=== PATIENT | female | born 1980 | race African-American/Black ===

== ENCOUNTER 2018-01-08 11:42 | Inpatient (IN) | payer OTHER ==
[2018-01-08 12:06] VITALS: BMI 22.1
[2018-01-08] MEDS ORDERED: ALBUTEROL SO4 0.083% IH SOL 2.5 MG/3 ML VIAL.NEB. NEB PRN (12:56)
--- NOTE | 2018-01-08 13:03 | HP ---
CIWA Score Nausea/Vomitin-No Nausea/No Vomiting Muscle Tremors: 4-Moderate,w/Arms Extend Anxiety: 1-Mildly Anxious Agitation: 0-Normal Activity Paroxysmal Sweats: 1-Minimal Palms Moist Orientation: 0-Oriented Tacttile Disturbances: 0-None Auditory Disturbances: 0-None Visual Disturbances: 0-None Headache: 0-None Present CIWA-Ar Total Score: 6 - Admission Criteria OASAS Guidelines: Admission for Medically Managed Detox: Requires at least one of the followin. CIWA greater than 12 2. Seizures within the past 24 hours 3. Delirium tremens within the past 24 hours 4. Hallucinations within the past 24 hours 5. Acute intervention needed for co occurring medical disorder 6. Acute intervention needed for co occurring psychiatric disorder 7. Severe withdrawal that cannot be handled at a lower level of care (continued vomiting, continued diarrhea, abnormal vital signs) requiring intravenous medication and/or fluids 8. Admission ROS [facility] - HPI Allergies/Adverse Reactions: Allergies Allergy/AdvReac Type Severity Reaction Status Date / Time beet Allergy Verified 01/08/18 13:24 No Known Drug Allergies Allergy Verified 01/08/18 13:24 onion Allergy Verified 01/08/18 13:24 tomato Allergy Verified 01/08/18 13:24 History of Present Illness: patient here requesting detox from etoh use , reports drinking 2 pints/day and 1 x 6-pack yesterday , withdrawal symptoms : tremors , states was at [facility] for detox November 2017 , reports daily use of alcohol , starts drinking around 6 am, latest use yesterday evening , went to [facility] due to intoxication , kept in psychiatric crespo , referred to this facility - has d/c paperwork tobacco - denies etoh - since age 22 , sober x [address]- mandated by [facility] in 2008 PMHX: asthma ( since , never hospitalized , has Albuterol, latest used 2 d ago - worse with cold weather ) PSHx :btl 2005 lmp : beginning of December, irregular ages [age] - children with bio father's brother temporary custody unemployed since 2014 , [employer] : denies current issues homeless Exam Limitations: No Limitations - Ebola screening Have you traveled outside of the country in the last 21 days: No Have you been sick,other than usual withdrawal symptoms: No - Review of Systems Constitutional: See HPI EENT: reports: No Symptoms Reported, Other (decreased vision) Respiratory: reports: No Symptoms reported Cardiac: reports: No Symptoms Reported GI: reports: Poor Appetite, Abdominal cramping : reports: No Symptoms Reported Musculoskeletal: reports: No Symptoms Reported Integumentary: reports: Other (left gt toe - dressing done at hospital for blister) Neuro: reports: No Symptoms reported Endocrine: reports: No Symptoms Reported Psychiatric: reports: Judgement Intact, Mood/Affect Appropiate, Orientated x3, Anxious Patient History - Smoking Cessation Smoking history: Never smoked Initiated information on smoking cessation: No - Substances Abused Alcohol Route: Oral Frequency: Daily Amount used: 2 pints vodka or 2 6pks beer Age of first use: 22 Date of Last Use: 01/07/18 Family Disease History - Family Disease History Family Disease History: Other: Father (d. TB , age 52 ), Mother ([place], HIV age 43 ) Admission Physical Exam [facility] - Vital Signs Vital Signs: Vital Signs - 24 hr 01/08/18 12:04 Temperature 99.9 F H Pulse Rate 95 H Respiratory 18 Rate Blood Pressure 120/67 - Physical General Appearance: Yes: Disheveled, Mild Distress HEENTM: Yes: Hearing grossly Normal, Normal ENT Inspection, Pharynx Normal, Other (upper - edentulous) Respiratory: Yes: Chest Non-Tender, Lungs Clear, Decreased Breath Sounds Neck: Yes: No masses,lesions,Nodules, Trachea in good position Cardiology: Yes: Regular Rhythm, Regular Rate, Tachycardia Abdominal: Yes: Normal Bowel Sounds, Soft Genitourinary: Yes: Within Normal Limits Back: Yes: Normal Inspection Musculoskeletal: Yes: full range of Motion, Other (limping - left) Extremities: Yes: Normal Capillary Refill, Tremors, Pedal Edema, Other (left great toe with dressing) Neurological: Yes: Fully Oriented, Alert, Motor Strength 5/5, Normal Mood/Affect Integumentary: Yes: Normal Color, Dry, Warm - Diagnostic (1) Alcohol dependence Current Visit: Yes Status: Acute Qualifiers: Substance use status: uncomplicated Qualified Code(s): F10.20 - Alcohol dependence, uncomplicated S Breath Alcohol Content Breath Alcohol Content: 0 Urine Pregancy Test - Result Urine Test Results: Negative- NO Line Present Urine Drug Screen - Results Drug Screen Negative: No Urine Drug Screen Results: BZO-Benzodiazepines
[2018-01-08] MEDS ORDERED: guaiFENesin/D-METHORPHAN HB 10 ML UNIT-DOSE CUPS PO PRN (13:12)
[2018-01-08] MEDS ORDERED: chlordiazePOXIDE HCL 25 MG CAPSULE PO PRN (13:12)
[2018-01-08] MEDS ORDERED: P-EPHED 60MG/TRIPROLIDI 2.5MG TABLET PO PRN (13:12)
[2018-01-08] MEDS ORDERED: IBUPROFEN 400 MG TABLET (FP) PO PRN (13:12)
[2018-01-08] MEDS ORDERED: MAG HYDROX/AL HYDROX/SIMETH 30 ML UNIT-DOSE CUP PO PRN (13:12)
[2018-01-08] MEDS ORDERED: ACETAMINOPHEN 325 MG TABLET (FP) PO PRN (13:12)
[2018-01-08] MEDS ORDERED: MAGNESIUM HYDROX 2400MG/30ML ORAL SUSPENSION 30 ML CUP PO PRN (13:12)
[2018-01-08] MEDS ORDERED: MENTHOL/PHENOL 1 EACH UD MM PRN (13:12)
[2018-01-08] MEDS ORDERED: MAGNESIUM CITRATE 300 ML BOTTLE PO PRN (13:12)
[2018-01-08] MEDS: chlordiazePOXIDE HCL 25 MG CAPSULE PO SCH ×2 (18:19→23:00)
[2018-01-08] MEDS: THIAMINE HCL 100 MG TABLET (FP) PO SCH (23:00)
[2018-01-08] MEDS: MELATONIN 5 MG TABLETS PO PRN (23:01)
[2018-01-08 23:05] LABS: URINE APPEARANCE TURBID; URINE BILIRUBIN NEGATIVE (<2.0 mg/dL); URINE COLOR YELLOW; URINE GLUCOSE (UA) NEGATIVE (NEGATIVE); URINE KETONE 1+ (NEGATIVE); URINE LEUK ESTERASE TRACE (NEGATIVE); URINE NITRITE NEGATIVE (NEGATIVE); URINE PROTEIN NEGATIVE (NEGATIVE); URINE UROBILINOGEN NEGATIVE mg/dL (0.2-1.0)
[2018-01-08 23:30] LABS: EPI CELLS FEW /HPF (FEW); URINE BACTERIA RARE /hpf (NONE SEEN); URINE MUCUS RARE; YEAST MANY
[2018-01-09] MEDS: chlordiazePOXIDE HCL 25 MG CAPSULE PO SCH ×4 (05:47→22:28)
[2018-01-09] MEDS: PRENATAL VITAMINS W/ FOLIC ACID TABLET (FP) PO SCH (10:30)
[2018-01-09 12:06] LABS: HEMATOCRIT 33.2 % (32.4-45.2); HEMOGLOBIN 10.8 GM/dL (10.7-15.3); MCH 29.4 pg (25.7-33.7); MCHC 32.4 g/dl (32.0-36.0); MEAN CELL VOLUME 90.6 fl (80-96); PLATELET COUNT 133 K/MM3 (134-434); RBC 3.66 M/mm3 (3.60-5.2); RDW 15.7 % (11.6-15.6); WHITE BLOOD COUNT 4.6 K/mm3 (4.0-10.0)
[2018-01-09 12:23] LABS: ALBUMIN 3.7 g/dl (3.4-5.0); ALK PHOS 40 U/L (45-117); ANION GAP 7 MMOL/L (8-16); BILIRUBIN,TOTAL 0.4 mg/dL (0.2-1); BLOOD UREA NITROGEN 10 mg/dL (7-18); CALCIUM 8.6 mg/dL (8.5-10.1); CHLORIDE 105 mmol/L (98-107); CO2 25 mmol/L (21-32); CREATININE 0.7 mg/dL (0.55-1.3); GLUCOSE,RANDOM 96 mg/dL (74-106); POTASSIUM 4.1 mmol/L (3.5-5.1); SGOT/AST 29 U/L (15-37); SGPT/ALT 31 U/L (13-61); SODIUM 138 mmol/L (136-145); TOT PROT 7.2 g/dl (6.4-8.2)
[2018-01-09] MEDS ORDERED: FLUCONAZOLE 50 MG TABLET PO ONE (13:00)
--- NOTE | 2018-01-09 13:06 | PN ---
[facility] CIWA - CIWA Score Nausea/Vomitin-No Nausea/No Vomiting Muscle Tremors: 3 Anxiety: 3 Agitation: 3 Paroxysmal Sweats: 3 Orientation: 0-Oriented Tacttile Disturbances: 0-None Auditory Disturbances: 0-None Visual Disturbances: 0-None Headache: 0-None Present CIWA-Ar Total Score: 12 S Progress Note (SOAP) Subjective: sweats shakes vaginal itch restless Objective: 01/09/18 13:07 Vital Signs Temperature 99.0 F 01/09/18 09:48 Pulse Rate 83 01/09/18 09:48 Respiratory Rate 16 01/09/18 09:48 Blood Pressure 137/77 01/09/18 09:48 O2 Sat by Pulse Oximetry (%) Laboratory Tests 01/08/18 01/09/18 01/09/18 22:00 05:40 05:40 WBC 4.6 RBC 3.66 Hgb 10.8 Hct 33.2 MCV 90.6 MCH 29.4 MCHC 32.4 RDW 15.7 H Plt Count 133 L MPV 10.0 Sodium 138 Potassium 4.1 Chloride 105 Carbon Dioxide 25 Anion Gap 7 L BUN 10 Creatinine 0.7 Creat Clearance w eGFR > 60 Random Glucose 96 Calcium 8.6 Total Bilirubin 0.4 AST 29 ALT 31 Alkaline Phosphatase 40 L Total Protein 7.2 Albumin 3.7 Urine Color Yellow Urine Appearance Turbid Urine pH 5.0 Ur Specific [place] 1.025 Urine Protein Negative Urine Glucose (UA) Negative Urine Ketones 1+ H Urine Blood Negative Urine Nitrite Negative Urine Bilirubin Negative Urine Urobilinogen Negative Ur Leukocyte Esterase Trace Urine WBC (Auto) 141 Urine RBC (Auto) 8 Ur Epithelial Cells Few Urine Bacteria Rare Urine Mucus Rare Urine Yeast Many RPR Titer 01/09/18 05:40 WBC RBC Hgb Hct MCV MCH MCHC RDW Plt Count MPV Sodium Potassium Chloride Carbon Dioxide Anion Gap BUN Creatinine Creat Clearance w eGFR Random Glucose Calcium Total Bilirubin AST ALT Alkaline Phosphatase Total Protein Albumin Urine Color Urine Appearance Urine pH Ur Specific [place] Urine Protein Urine Glucose (UA) Urine Ketones Urine Blood Urine Nitrite Urine Bilirubin Urine Urobilinogen Ur Leukocyte Esterase Urine WBC (Auto) Urine RBC (Auto) Ur Epithelial Cells Urine Bacteria Urine Mucus Urine Yeast RPR Titer Nonreactive aaox3 ambulating no acute distress Assessment: 01/09/18 13:07 withdrawal sx Plan: continue detox increase fluids diflucan 150mg x one ordered
[2018-01-09] MEDS: BACITRACIN 15 GM TUBE TOPICAL OINTMENT TP SCH (15:59)
[2018-01-09] MEDS: MELATONIN 5 MG TABLETS PO PRN (22:28)
[2018-01-09] MEDS: THIAMINE HCL 100 MG TABLET (FP) PO SCH (22:28)
[2018-01-10] MEDS: chlordiazePOXIDE HCL 25 MG CAPSULE PO SCH ×2 (05:58→10:32)
[2018-01-10] MEDS: BACITRACIN 15 GM TUBE TOPICAL OINTMENT TP SCH (10:32)
[2018-01-10] MEDS: PRENATAL VITAMINS W/ FOLIC ACID TABLET (FP) PO SCH (10:32)
--- NOTE | 2018-01-10 11:12 | PN ---
[facility] CIWA - CIWA Score Nausea/Vomitin-No Nausea/No Vomiting Muscle Tremors: 3 Anxiety: 1-Mildly Anxious Agitation: 2 Paroxysmal Sweats: 1-Minimal Palms Moist Orientation: 0-Oriented Tacttile Disturbances: 1-Very Mild Itch/Numbness Auditory Disturbances: 1-Very Mild Visual Disturbances: 0-None Headache: 1-Very Mild CIWA-Ar Total Score: 10 S Progress Note (SOAP) Subjective: anxiety tremor restlessness sweat Objective: 01/10/18 11:11 Vital Signs Temperature 99.0 F 01/10/18 09:37 Pulse Rate 82 01/10/18 09:37 Respiratory Rate 16 01/10/18 09:37 Blood Pressure 97/58 L 01/10/18 09:37 O2 Sat by Pulse Oximetry (%) Laboratory Last Values WBC 4.6 K/mm3 (4.0-10.0) 01/09/18 05:40 RBC 3.66 M/mm3 (3.60-5.2) 01/09/18 05:40 Hgb 10.8 GM/dL (10.7-15.3) 01/09/18 05:40 Hct 33.2 % (32.4-45.2) 01/09/18 05:40 MCV 90.6 fl (80-96) 01/09/18 05:40 MCH 29.4 pg (25.7-33.7) 01/09/18 05:40 MCHC 32.4 g/dl (32.0-36.0) 01/09/18 05:40 RDW 15.7 % (11.6-15.6) H 01/09/18 05:40 Plt Count 133 K/MM3 (134-434) L 01/09/18 05:40 MPV 10.0 fl (7.5-11.1) 01/09/18 05:40 Sodium 138 mmol/L (136-145) 01/09/18 05:40 Potassium 4.1 mmol/L (3.5-5.1) 01/09/18 05:40 Chloride 105 mmol/L (98-107) 01/09/18 05:40 Carbon Dioxide 25 mmol/L (21-32) 01/09/18 05:40 Anion Gap 7 MMOL/L (8-16) L 01/09/18 05:40 BUN 10 mg/dL (7-18) 01/09/18 05:40 Creatinine 0.7 mg/dL (0.55-1.3) 01/09/18 05:40 Creat Clearance w eGFR > 60 (>60) 01/09/18 05:40 Random Glucose 96 mg/dL (74-106) 01/09/18 05:40 Calcium 8.6 mg/dL (8.5-10.1) 01/09/18 05:40 Total Bilirubin 0.4 mg/dL (0.2-1) 01/09/18 05:40 AST 29 U/L (15-37) 01/09/18 05:40 ALT 31 U/L (13-61) 01/09/18 05:40 Alkaline Phosphatase 40 U/L (45-117) L 01/09/18 05:40 Total Protein 7.2 g/dl (6.4-8.2) 01/09/18 05:40 Albumin 3.7 g/dl (3.4-5.0) 01/09/18 05:40 Urine Color Yellow 01/08/18 22:00 Urine Appearance Turbid 01/08/18 22:00 Urine pH 5.0 (5.0-8.0) 01/08/18 22:00 Ur Specific [place] 1.025 (1.010-1.035) 01/08/18 22:00 Urine Protein Negative (NEGATIVE) 01/08/18 22:00 Urine Glucose (UA) Negative (NEGATIVE) 01/08/18 22:00 Urine Ketones 1+ (NEGATIVE) H 01/08/18 22:00 Urine Blood Negative (NEGATIVE) 01/08/18 22:00 Urine Nitrite Negative (NEGATIVE) 01/08/18 22:00 Urine Bilirubin Negative (<2.0 mg/dL) 01/08/18 22:00 Urine Urobilinogen Negative mg/dL (0.2-1.0) 01/08/18 22:00 Ur Leukocyte Esterase Trace (NEGATIVE) 01/08/18 22:00 Urine WBC (Auto) 141 /hpf (3-5) 01/08/18 22:00 Urine RBC (Auto) 8 /hpf (0-3) 01/08/18 22:00 Ur Epithelial Cells Few /HPF (FEW) 01/08/18 22:00 Urine Bacteria Rare /hpf (NONE SEEN) 01/08/18 22:00 Urine Mucus Rare 01/08/18 22:00 Urine Yeast Many 01/08/18 22:00 RPR Titer Nonreactive (NONREACTIVE) 01/09/18 05:40 lab noted Assessment: 01/10/18 11:11 withdrawal sx Plan: continue detox
[2018-01-10] MEDS: chlordiazePOXIDE 5 MG CAPSULE PO SCH ×2 (17:37→22:03)
[2018-01-10] MEDS: THIAMINE HCL 100 MG TABLET (FP) PO SCH (22:03)
[2018-01-10] MEDS: MELATONIN 5 MG TABLETS PO PRN (22:03)
[2018-01-11] MEDS: chlordiazePOXIDE 5 MG CAPSULE PO SCH ×2 (05:40→10:09)
[2018-01-11] MEDS: PRENATAL VITAMINS W/ FOLIC ACID TABLET (FP) PO SCH (10:08)
[2018-01-11] MEDS: BACITRACIN 15 GM TUBE TOPICAL OINTMENT TP SCH (10:08)
--- NOTE | 2018-01-11 10:51 | CONSULT ---
[facility] Psychiatric Consult - Data Date of interview: 01/11/18 Admission source: [facility] Identifying data: This is a 37 years old female, single mother of five, domiciled, unemployed, with no psycvhiatric hospitalization history, reports long history of Alcohol depednedce, reports no medications taking prior to admission. Patient mivnimising past posychiatric history. Denies suicidal and homicidal history. Substance Abuse History: - Smoking Cessation. Smoking history: Never smoked. Initiated information on smoking cessation: No. Substances Abused. Alcohol. Route: Oral. Frequency: Daily. Amount used: 2 pints vodka or 2 6pks beer. Age of first use: 22. Date of Last Use: 01/07/18 Medical History: Denies significant medical problems Psychiatric History: Patient reports history of depression and insomnia, denies psychiatric hospitalization history, reports no medications taking prior to admission, denies suicidal and homicidal history, asking for pharmacological interventiuon for depression and insomnia. Rec: Seroquel 50mg po qhs. Remeron 15mg po qhs Physical/Sexual Abuse/Trauma History: Denies Additional Comment: Seroquel 50mg po qhs. Remeron 15mg po qhs Mental Status Exam - Mental Status Exam Alert and Oriented to: Person Cognitive Function: Fair Patient Appearance: Unkempt Mood: Sad, Withdrawn Affect: Flat Patient Behavior: Cooperative Speech Pattern: Delayed Voice Loudness: Mildly Soft/Quiet Thought Process: Circumstantial, Goal Oriented Thought Disorder: Being Controlled Hallucinations: Denies Suicidal Ideation: Denies Homicidal Ideation: Denies Insight/Judgement: Fair Sleep: Difficulty falling asleep Appetite: Fair Muscle strength/Tone: Normal Gait/Station: Shuffling Additional Comments: Seroquel 50mg po qhs. Remeron 15mg po qhs Psychiatric Findings - Problem List (Max 1, 2,3) (1) Alcohol dependence Current Visit: Yes Status: Acute Qualifiers: Substance use status: uncomplicated Qualified Code(s): F10.20 - Alcohol dependence, uncomplicated (2) Alcohol-induced mood disorder Current Visit: Yes Status: Acute - Initial Treatment Plan Initial Treatment Plan: Seroquel 50mg po qhs. Remeron 15mg po qhs
--- NOTE | 2018-01-11 11:25 | PN ---
[facility] Progress Note (SOAP) Subjective: feeling sad sweats agitation Objective: 01/11/18 11:24 Vital Signs Temperature 98.2 F 01/11/18 09:16 Pulse Rate 72 01/11/18 09:16 Respiratory Rate 16 01/11/18 09:16 Blood Pressure 93/47 L 01/11/18 09:16 O2 Sat by Pulse Oximetry (%) aaox3 ambulating no acute distress Assessment: 01/11/18 11:24 withdrawal sx Plan: continue detox increase fluids psych ordered for evaluation
[2018-01-11] MEDS: chlordiazePOXIDE HCL 10 MG CAPSULE PO SCH ×2 (17:58→22:12)
[2018-01-11] MEDS ORDERED: QUEtiapine FUMARATE 50 MG TABLET PO SCH (22:00)
[2018-01-11] MEDS ORDERED: MIRTAZAPINE 15 MG TABLET (FP) PO SCH (22:00)
[2018-01-11] MEDS: THIAMINE HCL 100 MG TABLET (FP) PO SCH (22:12)
[2018-01-11] MEDS: MELATONIN 5 MG TABLETS PO PRN (22:13)
[2018-01-12] MEDS: chlordiazePOXIDE HCL 10 MG CAPSULE PO SCH (06:58)
[2018-01-12 07:20] VITALS: BP 102/63; PULSE 92; TEMP 97.3
--- NOTE | 2018-01-12 09:13 | DS ---
[facility] Detox Discharge Summary Admission Date: 01/08/18 Discharge Date: 01/12/18 - History Present History: Alcohol Dependence - Physical Exam Results Vital Signs: Vital Signs Temperature 97.3 F L 01/12/18 07:19 Pulse Rate 92 H 01/12/18 07:19 Respiratory Rate 18 01/12/18 07:19 Blood Pressure 102/63 01/12/18 07:19 O2 Sat by Pulse Oximetry (%) - Treatment Hospital Course: Detox Protocol Followed, Detoxed Safely, Responded well, Discharged Condition Good, Rehab Referral Accepted - Medication Discharge Medications: Ambulatory Orders Albuterol Sulfate Inhaler - [Ventolin Hfa Inhaler -] 2 inh PO Q4H PRN 01/08/18 Mirtazapine [Remeron -] 15 mg PO HS #30 tablet 01/11/18 Quetiapine Fumarate [Seroquel -] 50 mg PO HS #30 tablet 01/11/18 - Diagnosis (1) Alcohol dependence Current Visit: Yes Status: Chronic Qualifiers: Substance use status: uncomplicated Qualified Code(s): F10.20 - Alcohol dependence, uncomplicated (2) Alcohol induced insomnia Current Visit: Yes Status: Acute (3) Alcohol-induced mood disorder Current Visit: Yes Status: Acute - AMA Did Patient Leave Against Medical Advice: No (decline rehab she has to go to A )
== END 2018-01-12 09:10 | disposition home or self-care (01) | DRG 775 ==
LOC: YASAS 11:42 → Y6N 14:27
PROVIDERS: ADMIT Neuromusculoskeletal Medicine & OMM; ATTEND Neuromusculoskeletal Medicine & OMM
PROC: HZ2ZZZZ Detoxification Services for Substance Abuse Treatment (ICD-10-PCS; principal; 2018-01-08)
DX: F10.230 Alcohol dependence with withdrawal, uncomplicated (principal); F10.24 Alcohol dependence with alcohol-induced mood disorder; F10.282 Alcohol dependence with alcohol-induced sleep disorder
CPT/HCPCS: 36415; 80053; 81003; 81015; 85027; 86593

== ENCOUNTER 2018-10-27 12:00 | Inpatient (IN) | payer OTHER ==
[2018-10-27 14:50] VITALS: BMI 21.7
--- NOTE | 2018-10-27 16:05 | HP ---
CIWA Score Nausea/Vomitin Muscle Tremors: 6 Anxiety: 0-No Anxiety, at Ease Agitation: 0-Normal Activity Paroxysmal Sweats: No Perspiration Orientation: 0-Oriented Tacttile Disturbances: 0-None Auditory Disturbances: 0-None Visual Disturbances: 0-None Headache: 6-Very Severe (9/10 temporal [place]) CIWA-Ar Total Score: 15 - Admission Criteria OASAS Guidelines: Admission for Medically Managed Detox: Requires at least one of the followin. CIWA greater than 12 2. Seizures within the past 24 hours 3. Delirium tremens within the past 24 hours 4. Hallucinations within the past 24 hours 5. Acute intervention needed for co occurring medical disorder 6. Acute intervention needed for co occurring psychiatric disorder 7. Severe withdrawal that cannot be handled at a lower level of care (continued vomiting, continued diarrhea, abnormal vital signs) requiring intravenous medication and/or fluids 8. Admission ROS [facility] Chief Complaint: detox EtOH Allergies/Adverse Reactions: Allergies Allergy/AdvReac Type Severity Reaction Status Date / Time beet Allergy Verified 10/27/18 14:46 No Known Drug Allergies Allergy Verified 10/27/18 14:46 onion Allergy Verified 10/27/18 14:46 tomato Allergy Verified 10/27/18 14:46 History of Present Illness: 38F pmh of asthma, anemic, presenting to [facility] for EtOH detox and rehab. Drinks 6- pack x2, 40oz x2. Drinks first thing in the morning. First drink at 22yo. Last drink at ~0300. Develops tremors if doesn't drink after 1d. Blackouted x1, fell down the stairs 2018. Head CT(Nikolai 2018) neg for bleed. Never had seizures. Denies scleral icterus, hematemesis, hematachezia, ascites. Distant MJ. Denies heroin, cocaine, tobacco. Detox'd 5x since 2013. Rehab 17mo at [facility] in 2009. Never incarcerated. Lives with and family. 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 Gets financial support from . - Ebola screening Have you traveled outside of the country in the last 21 days: No Have you had contact with anyone from an Ebola affected area: No - Review of Systems Constitutional: Chills, Unexplained wgt Loss (3lbs in 1mo) EENT: denies: Blurred Vision, Double Vision Respiratory: reports: Cough (nonproductive). denies: Wheezing Cardiac: denies: Chest Pain, Palpitations, Chest Tightness GI: reports: Poor Appetite. denies: Constipated, Diarrhea, Nausea, Vomiting : denies: Burning, Dysuria, Urgency Integumentary: reports: Dryness. denies: Erythema Neuro: reports: Headache. denies: Seizure Psychiatric: reports: Orientated x3 Patient History - Patient Medical History Hx Asthma: Yes Hx Chronic Obstructive Pulmonary Disease (COPD): No Hx Cardiac Disorders: No Hx Hypertension: No Hx Seizures: No Hx Diabetes: No Hx Gastrointestinal Disorders: No Hx Genitourinary Disorders: No Hx Sexually Transmitted Disorders: No Hx Renal Disease (ESRD): No Hx Depression: No Hx Suicide Attempt: No Hx Schizophrenia: No - Patient Surgical History Past Surgical History: Yes Other Surgical History: Tubal ligation in 2005 - PPD History Date: 01/10/18 - Reproductive History Last Menstrual Period: 11/16/17 - Smoking Cessation Smoking history: Never smoked - Substances abused Alcohol Substance route: Oral Frequency: Daily Amount used: 12 12oz beers & 2 40oz beer Age of first use: 22 Date of last use: 10/26/18 Family Disease History - Family Disease History Family Disease History: Other: Father (d. TB , age 52 ), Mother ([place], HIV age 43 ) Admission Physical Exam S - Vital Signs Vital Signs: Vital Signs - 24 hr 10/27/18 14:47 Temperature 98.6 F Pulse Rate 82 Respiratory 18 Rate Blood Pressure 128/86 - Physical General Appearance: Yes: Tremorous. No: No Apparent Distress, Intoxicated, Thin , Irritable HEENTM: No: Pale Conjunctivae R, Pale Conjunctivae L, Scleral Ictenus R, Scleral Ictenus L, Nasal Congestion Respiratory: Yes: Chest Non-Tender, Lungs Clear, No Respiratory Distress, No Accessory Muscle Use Neck: Yes: Supple, Trachea in good position Cardiology: Yes: Regular Rhythm, Regular Rate, S1, S2. No: Irregularly Irregular Abdominal: Yes: Soft. No: Distended, Tenderness Musculoskeletal: Yes: Gait Steady Extremities: Yes: Normal Range of Motion Neurological: Yes: Fully Oriented, Alert Integumentary: Yes: Dry, Warm Breathalyzer - Breathalyzer Breathalyzer: 0.011 Urine Drug Screen - Test Device Lot number: [id number] Expiration date: 07/16/20 - Control Is test valid?: Yes - Results Drug screen NEGATIVE: Yes Inpatient Rehab Admission - Rehab Decision to Admit Inpatient rehab admission?: No
--- NOTE | 2018-10-27 16:21 | PN ---
Teaching Attending Note Name of Resident: Aryan Zamora ATTENDING PHYSICIAN STATEMENT I saw and evaluated the patient. I reviewed the resident's note and discussed the case with the resident. I agree with the resident's findings and plan as documented. SUBJECTIVE: 38 yo with alcohol use disorder- here for detox. No h/o seizures. OBJECTIVE: Vital Signs - 24 hr 10/27/18 14:47 Temperature 98.6 F Pulse Rate 82 Respiratory 18 Rate Blood Pressure 128/86 tremors ASSESSMENT AND PLAN: AUD- start librium detox protcol
[2018-10-27] MEDS ORDERED: MENTHOL/PHENOL 1 EACH UD MM PRN (16:26)
[2018-10-27] MEDS ORDERED: MAG HYDROX/AL HYDROX/SIMETH 30 ML UNIT-DOSE CUP PO PRN (16:26)
[2018-10-27] MEDS ORDERED: chlordiazePOXIDE HCL 10 MG CAPSULE PO PRN (16:26)
[2018-10-27] MEDS ORDERED: ACETAMINOPHEN 325 MG TABLET (FP) PO PRN ×2 (16:26)
[2018-10-27] MEDS ORDERED: hydrOXYzine PAMOATE 25 MG CAPSULE (FP) PO PRN (16:26)
[2018-10-27] MEDS ORDERED: MAGNESIUM HYDROX 2400MG/30ML ORAL SUSPENSION 30 ML CUP PO PRN (16:26)
[2018-10-27] MEDS ORDERED: MAGNESIUM CITRATE 300 ML BOTTLE PO PRN (16:26)
[2018-10-27] MEDS ORDERED: IBUPROFEN 400 MG TABLET (FP) PO PRN (16:26)
[2018-10-27] MEDS ORDERED: METHOCARBAMOL 500 MG TABLET PO PRN (16:26)
[2018-10-27] MEDS ORDERED: BISMUTH SUBSALICYLATE 524 MG/30 ML UD PO PRN (16:26)
[2018-10-27] MEDS ORDERED: ALBUTEROL SO4 8 GM HFA INHALER IH PRN (16:31)
[2018-10-27] MEDS: THIAMINE HCL 100 MG TABLET (FP) PO SCH (22:13)
[2018-10-27] MEDS: chlordiazePOXIDE HCL 25 MG CAPSULE PO SCH (22:13)
[2018-10-28] MEDS: chlordiazePOXIDE HCL 25 MG CAPSULE PO SCH ×3 (06:48→21:45)
[2018-10-28 10:00] LABS: HEMATOCRIT 39.9 % (32.4-45.2); HEMOGLOBIN 12.9 GM/dL (10.7-15.3); MCH 30.5 pg (25.7-33.7); MCHC 32.4 g/dl (32.0-36.0); MEAN PLT VOLUME 9.3 fl (7.5-11.1); PLATELET COUNT 127 K/MM3 (134-434); RBC 4.24 M/mm3 (3.60-5.2); RDW 16.1 % (11.6-15.6); WHITE BLOOD COUNT 4.6 K/mm3 (4.0-10.0)
--- NOTE | 2018-10-28 10:04 | PN ---
S CIWA - CIWA Score Nausea/Vomitin Muscle Tremors: 2 Anxiety: 2 Agitation: 2 Paroxysmal Sweats: 1-Minimal Palms Moist Orientation: 0-Oriented Tacttile Disturbances: 1-Very Mild Itch/Numbness Auditory Disturbances: 0-None Visual Disturbances: 0-None Headache: 2-Mild CIWA-Ar Total Score: 12 [facility] Progress Note (SOAP) Subjective: alert,irritable,anxious,interrupted sleep,tremor Objective: 10/28/18 10:02 Vital Signs Temperature 97.9 F 10/28/18 09:16 Pulse Rate 82 10/28/18 09:16 Respiratory Rate 18 10/28/18 09:16 Blood Pressure 124/84 10/28/18 09:16 O2 Sat by Pulse Oximetry (%) Laboratory Last Values WBC 4.6 K/mm3 (4.0-10.0) 10/28/18 08:00 RBC 4.24 M/mm3 (3.60-5.2) 10/28/18 08:00 Hgb 12.9 GM/dL (10.7-15.3) 10/28/18 08:00 Hct 39.9 % (32.4-45.2) D 10/28/18 08:00 MCV 94.0 fl (80-96) 10/28/18 08:00 MCH 30.5 pg (25.7-33.7) 10/28/18 08:00 MCHC 32.4 g/dl (32.0-36.0) 10/28/18 08:00 RDW 16.1 % (11.6-15.6) H 10/28/18 08:00 Plt Count 127 K/MM3 (134-434) L 10/28/18 08:00 MPV 9.3 fl (7.5-11.1) 10/28/18 08:00 POC Urine HCG, Qual Negative 10/27/18 15:50 labs pending Assessment: 10/28/18 10:03 withdrawal symptom Plan: continue detox librium regimen
[2018-10-28 10:15] LABS: ALBUMIN 3.7 g/dl (3.4-5.0); BILIRUBIN,TOTAL 1.2 mg/dL (0.2-1); BLOOD UREA NITROGEN 5.5 mg/dL (7-18); CALCIUM 9.4 mg/dL (8.5-10.1); CREATININE 0.7 mg/dL (0.55-1.3); POTASSIUM 3.5 mmol/L (3.5-5.1); TOT PROT 7.8 g/dl (6.4-8.2)
[2018-10-28] MEDS: PRENATAL VITAMINS W/ FOLIC ACID TABLET (FP) PO SCH (10:18)
--- NOTE | 2018-10-28 15:32 | EKG ---
Test Reason : Blood Pressure : / mmHG Vent. Rate : 079 BPM Atrial Rate : 079 BPM P-R Int : 172 ms QRS Dur : 078 ms QT Int : 406 ms P-R-T Axes : 057 053 057 degrees QTc Int : 465 ms NORMAL SINUS RHYTHM NORMAL ECG NO PREVIOUS ECGS AVAILABLE Confirmed by PIEDAD MTZ, OTILIA ([id number]) on 10/28/2018 3:31:30 PM Referred By: ALEX DEAL Confirmed By:OTILIA HERBERT MD
[2018-10-28] MEDS: MELATONIN 5 MG TABLETS PO PRN (21:45)
[2018-10-28] MEDS: THIAMINE HCL 100 MG TABLET (FP) PO SCH (21:46)
[2018-10-29] MEDS: chlordiazePOXIDE 5 MG CAPSULE PO SCH ×3 (05:38→22:19)
[2018-10-29] MEDS: PRENATAL VITAMINS W/ FOLIC ACID TABLET (FP) PO SCH (10:28)
--- NOTE | 2018-10-29 10:57 | PN ---
S CIWA - CIWA Score Nausea/Vomitin Muscle Tremors: 2 Anxiety: 2 Agitation: 2 Paroxysmal Sweats: No Perspiration Orientation: 0-Oriented Tacttile Disturbances: 0-None Auditory Disturbances: 0-None Visual Disturbances: 0-None Headache: 1-Very Mild CIWA-Ar Total Score: 9 [facility] Progress Note (SOAP) Subjective: alert,irritable,anxious,interrupted sleep,pain in the body Objective: 10/29/18 11:34 Vital Signs Temperature 98.2 F 10/29/18 09:23 Pulse Rate 74 10/29/18 09:23 Respiratory Rate 18 10/29/18 09:23 Blood Pressure 115/67 10/29/18 09:23 O2 Sat by Pulse Oximetry (%) Laboratory Last Values WBC 4.6 K/mm3 (4.0-10.0) 10/28/18 08:00 RBC 4.24 M/mm3 (3.60-5.2) 10/28/18 08:00 Hgb 12.9 GM/dL (10.7-15.3) 10/28/18 08:00 Hct 39.9 % (32.4-45.2) D 10/28/18 08:00 MCV 94.0 fl (80-96) 10/28/18 08:00 MCH 30.5 pg (25.7-33.7) 10/28/18 08:00 MCHC 32.4 g/dl (32.0-36.0) 10/28/18 08:00 RDW 16.1 % (11.6-15.6) H 10/28/18 08:00 Plt Count 127 K/MM3 (134-434) L 10/28/18 08:00 MPV 9.3 fl (7.5-11.1) 10/28/18 08:00 Sodium 137 mmol/L (136-145) 10/28/18 08:00 Potassium 3.5 mmol/L (3.5-5.1) 10/28/18 08:00 Chloride 99 mmol/L (98-107) 10/28/18 08:00 Carbon Dioxide 27 mmol/L (21-32) 10/28/18 08:00 Anion Gap 11 MMOL/L (8-16) 10/28/18 08:00 BUN 5.5 mg/dL (7-18) L 10/28/18 08:00 Creatinine 0.7 mg/dL (0.55-1.3) 10/28/18 08:00 Est GFR (CKD-EPI)AfAm 125.61 10/28/18 08:00 Est GFR (CKD-EPI)NonAf 108.38 10/28/18 08:00 Random Glucose 127 mg/dL (74-106) H 10/28/18 08:00 Calcium 9.4 mg/dL (8.5-10.1) 10/28/18 08:00 Total Bilirubin 1.2 mg/dL (0.2-1) H 10/28/18 08:00 AST 51 U/L (15-37) H 10/28/18 08:00 ALT 40 U/L (13-61) 10/28/18 08:00 Alkaline Phosphatase 53 U/L (45-117) 10/28/18 08:00 Total Protein 7.8 g/dl (6.4-8.2) 10/28/18 08:00 Albumin 3.7 g/dl (3.4-5.0) 10/28/18 08:00 POC Urine HCG, Qual Negative 10/27/18 15:50 RPR Titer Nonreactive (NONREACTIVE) 10/28/18 08:00 HIV 1&2 Antibody Screen Negative 10/28/18 08:00 HIV P24 Antigen Negative 10/28/18 08:00 Assessment: 10/29/18 11:35 withdrawal symptom Plan: continue detox ,librium regimen,intial glucose 127,will do fasting blood glucose
[2018-10-29] MEDS: THIAMINE HCL 100 MG TABLET (FP) PO SCH (22:20)
[2018-10-29] MEDS: MELATONIN 5 MG TABLETS PO PRN (22:20)
[2018-10-30] MEDS ORDERED: chlordiazePOXIDE HCL 10 MG CAPSULE PO PRN
[2018-10-30] MEDS: chlordiazePOXIDE HCL 10 MG CAPSULE PO SCH ×3 (05:24→22:19)
[2018-10-30] MEDS: PRENATAL VITAMINS W/ FOLIC ACID TABLET (FP) PO SCH (10:17)
--- NOTE | 2018-10-30 10:43 | PN ---
S CIWA - CIWA Score Nausea/Vomitin-No Nausea/No Vomiting Muscle Tremors: None Anxiety: 2 Agitation: 1-Slight > Activity Paroxysmal Sweats: 3 Orientation: 0-Oriented Tacttile Disturbances: 0-None Auditory Disturbances: 0-None Visual Disturbances: 0-None Headache: 2-Mild CIWA-Ar Total Score: 8 [facility] Progress Note (SOAP) Subjective: c/o headache, anxiety, sweats, and irritability. Objective: 10/30/18 10:42 Vital Signs 10/30/18 10/30/18 10/30/18 03:30 06:57 09:13 Temperature 97.5 F L 97.9 F Pulse Rate 68 75 Respiratory 18 17 16 Rate Blood Pressure 107/49 L 108/65 Lab Results WBC 4.6 K/mm3 (4.0-10.0) 10/28/18 08:00 RBC 4.24 M/mm3 (3.60-5.2) 10/28/18 08:00 Hgb 12.9 GM/dL (10.7-15.3) 10/28/18 08:00 Hct 39.9 % (32.4-45.2) D 10/28/18 08:00 MCV 94.0 fl (80-96) 10/28/18 08:00 MCHC 32.4 g/dl (32.0-36.0) 10/28/18 08:00 RDW 16.1 % (11.6-15.6) H 10/28/18 08:00 Plt Count 127 K/MM3 (134-434) L 10/28/18 08:00 Sodium 137 mmol/L (136-145) 10/28/18 08:00 Potassium 3.5 mmol/L (3.5-5.1) 10/28/18 08:00 Chloride 99 mmol/L (98-107) 10/28/18 08:00 Carbon Dioxide 27 mmol/L (21-32) 10/28/18 08:00 Anion Gap 11 MMOL/L (8-16) 10/28/18 08:00 BUN 5.5 mg/dL (7-18) L 10/28/18 08:00 Creatinine 0.7 mg/dL (0.55-1.3) 10/28/18 08:00 Random Glucose 127 mg/dL (74-106) H 10/28/18 08:00 Calcium 9.4 mg/dL (8.5-10.1) 10/28/18 08:00 Labs noted. Assessment: 10/30/18 10:42 AOX3, in no acute respiratory distress. Full ROM, ambulating in the unit. Withdrawal symptoms. Plan: continue detox.
[2018-10-30] MEDS: THIAMINE HCL 100 MG TABLET (FP) PO SCH (22:18)
[2018-10-30] MEDS: MELATONIN 5 MG TABLETS PO PRN (22:19)
[2018-10-31] MEDS ORDERED: chlordiazePOXIDE HCL 10 MG CAPSULE PO ONE (05:00)
[2018-10-31 09:29] VITALS: BP 110/59; PULSE 69; TEMP 97.7
[2018-10-31] MEDS: PRENATAL VITAMINS W/ FOLIC ACID TABLET (FP) PO SCH (10:21)
--- NOTE | 2018-10-31 13:55 | DS ---
[facility] Detox Discharge Summary Admission Date: 10/27/18 Discharge Date: 10/31/18 - History Present History: Alcohol Dependence - Physical Exam Results Vital Signs: Vital Signs Temperature 97.7 F 10/31/18 09:29 Pulse Rate 69 10/31/18 09:29 Respiratory Rate 18 10/31/18 09:29 Blood Pressure 110/59 L 10/31/18 09:29 O2 Sat by Pulse Oximetry (%) Pertinent Admission Physical Exam Findings: Ros denies shakes, headache, chest pain, sob and dizziness PE alert and oriented x 3 skin warm and dry +perrla, eoms intact bl ext full rom, amb ad maria de jesus no tremors - Treatment Hospital Course: Detox Protocol Followed, Detoxed Safely, Responded well, Discharged Condition Good, Rehab Referral Accepted Patient has Accepted a Rehab Referral to: [facility] - Medication Discharge Medications: Ambulatory Orders Albuterol Sulfate Inhaler - [Ventolin Hfa Inhaler -] 2 inh PO Q4H PRN 01/08/18 - AMA Did Patient Leave Against Medical Advice: No
== END 2018-10-31 13:15 | disposition other institution (70) | DRG 775 ==
LOC: YASAS 12:00 → Y6N 16:37
PROVIDERS: ADMIT Surgery; ATTEND Surgery
PROC: HZ2ZZZZ Detoxification Services for Substance Abuse Treatment (ICD-10-PCS; principal; 2018-10-27)
DX: F10.230 Alcohol dependence with withdrawal, uncomplicated (principal)
CPT/HCPCS: 36415; 80053; 81025; 82947; 85027; 86480; 86593; 87389; 93005; 93010

== ENCOUNTER 2018-10-31 12:12 | Inpatient (IN) | payer OTHER ==
--- NOTE | 2018-10-31 14:20 | HP ---
[facility] Rehab Assess/Revision - Admission History Admitted to Rehab from: [facility] Date of Admission to Rehab: 10/31/2018 - Vital signs Vital Signs: Vital Signs Period Temp Pulse Resp BP Sys/Wheeler Pulse Ox Last 24 Hr 96 F 84 18 95/61 - Findings Detox History & Physical reviewed: Yes Concur with findings: Yes Inpatient Rehab Admission - Rehab Decision to Admit Inpatient rehab admission?: Yes - Initial Determination Are CD services needed?: Yes Free of communicable disease: Yes Not in need of hospitalization: Yes - Rehab Admission Criteria Previous failed treatment: Yes Poor recovery environment: Yes Comorbidities: Yes Lacks judgement: No Patient is meeting Inpatient Rehab admission criteria:: Yes
[2018-10-31] MEDS ORDERED: MAGNESIUM CITRATE 300 ML BOTTLE PO PRN (14:30)
[2018-10-31] MEDS ORDERED: ACETAMINOPHEN 325 MG TABLET (FP) PO PRN (14:30)
[2018-10-31] MEDS ORDERED: guaiFENesin 200 MG/10 ML 10 ML UNIT-DOSE CUPS PO PRN (14:30)
[2018-10-31] MEDS ORDERED: hydrOXYzine PAMOATE 50 MG CAPSULE (FP) PO PRN (14:30)
[2018-10-31] MEDS ORDERED: ALBUTEROL SO4 8 GM HFA INHALER IH PRN (14:30)
[2018-10-31] MEDS ORDERED: IBUPROFEN 400 MG TABLET (FP) PO PRN (14:30)
[2018-10-31] MEDS ORDERED: P-EPHED 60MG/TRIPROLIDI 2.5MG TABLET PO PRN (14:30)
[2018-10-31] MEDS ORDERED: MENTHOL/PHENOL 1 EACH UD MM PRN (14:30)
[2018-10-31] MEDS ORDERED: MAGNESIUM HYDROX 2400MG/30ML ORAL SUSPENSION 30 ML CUP PO PRN (14:30)
[2018-10-31] MEDS ORDERED: LOPERAMIDE HCL 2 MG CAPSULE PO PRN (14:30)
[2018-10-31] MEDS ORDERED: MAG HYDROX/AL HYDROX/SIMETH 30 ML UNIT-DOSE CUP PO PRN (14:30)
[2018-10-31] MEDS: MELATONIN 5 MG TABLETS PO PRN (21:43)
[2018-10-31] MEDS: THIAMINE HCL 100 MG TABLET (FP) PO SCH (21:43)
[2018-11-01] MEDS: PRENATAL VITAMINS W/ FOLIC ACID TABLET (FP) PO SCH (09:48)
[2018-11-01] MEDS: MELATONIN 5 MG TABLETS PO PRN (21:44)
[2018-11-01] MEDS: THIAMINE HCL 100 MG TABLET (FP) PO SCH (21:44)
[2018-11-02] MEDS: PRENATAL VITAMINS W/ FOLIC ACID TABLET (FP) PO SCH (09:11)
[2018-11-02] MEDS: THIAMINE HCL 100 MG TABLET (FP) PO SCH (21:29)
[2018-11-02] MEDS: MELATONIN 5 MG TABLETS PO PRN (21:29)
[2018-11-03] MEDS: PRENATAL VITAMINS W/ FOLIC ACID TABLET (FP) PO SCH (10:07)
[2018-11-03] MEDS ORDERED: COLLOIDAL OATMEAL 1 BAR EACH TP PRN (14:52)
[2018-11-03] MEDS: MELATONIN 5 MG TABLETS PO PRN (21:31)
[2018-11-03] MEDS: THIAMINE HCL 100 MG TABLET (FP) PO SCH (21:31)
[2018-11-04] MEDS: PRENATAL VITAMINS W/ FOLIC ACID TABLET (FP) PO SCH (09:52)
[2018-11-04] MEDS: THIAMINE HCL 100 MG TABLET (FP) PO SCH (21:30)
[2018-11-04] MEDS: MELATONIN 5 MG TABLETS PO PRN (21:30)
[2018-11-05] MEDS: PRENATAL VITAMINS W/ FOLIC ACID TABLET (FP) PO SCH (09:58)
[2018-11-05] MEDS: MELATONIN 5 MG TABLETS PO PRN (21:57)
[2018-11-05] MEDS: THIAMINE HCL 100 MG TABLET (FP) PO SCH (21:57)
[2018-11-06] MEDS: PRENATAL VITAMINS W/ FOLIC ACID TABLET (FP) PO SCH (09:35)
[2018-11-06] MEDS: THIAMINE HCL 100 MG TABLET (FP) PO SCH (21:20)
[2018-11-06] MEDS: MELATONIN 5 MG TABLETS PO PRN (21:21)
[2018-11-07] MEDS: PRENATAL VITAMINS W/ FOLIC ACID TABLET (FP) PO SCH (10:19)
[2018-11-07] MEDS: THIAMINE HCL 100 MG TABLET (FP) PO SCH (21:11)
[2018-11-07] MEDS: MELATONIN 5 MG TABLETS PO PRN (21:11)
[2018-11-08] MEDS: PRENATAL VITAMINS W/ FOLIC ACID TABLET (FP) PO SCH (10:48)
[2018-11-08] MEDS: THIAMINE HCL 100 MG TABLET (FP) PO SCH (21:22)
[2018-11-08] MEDS: MELATONIN 5 MG TABLETS PO PRN (21:22)
[2018-11-09] MEDS: PRENATAL VITAMINS W/ FOLIC ACID TABLET (FP) PO SCH (10:26)
[2018-11-09] MEDS: THIAMINE HCL 100 MG TABLET (FP) PO SCH (21:08)
[2018-11-09] MEDS: MELATONIN 5 MG TABLETS PO PRN (21:08)
[2018-11-10] MEDS: PRENATAL VITAMINS W/ FOLIC ACID TABLET (FP) PO SCH (09:53)
[2018-11-10] MEDS: MELATONIN 5 MG TABLETS PO PRN (21:20)
[2018-11-10] MEDS: THIAMINE HCL 100 MG TABLET (FP) PO SCH (21:20)
[2018-11-11] MEDS: PRENATAL VITAMINS W/ FOLIC ACID TABLET (FP) PO SCH (10:09)
[2018-11-11] MEDS: MELATONIN 5 MG TABLETS PO PRN (21:12)
[2018-11-11] MEDS: THIAMINE HCL 100 MG TABLET (FP) PO SCH (21:12)
[2018-11-12 07:36] VITALS: BP 104/66; PULSE 80; TEMP 98.4
[2018-11-12] MEDS: PRENATAL VITAMINS W/ FOLIC ACID TABLET (FP) PO SCH (09:48)
--- NOTE | 2018-11-12 12:09 | DS ---
[facility] Rehab Discharge Summary - [facility] Rehab Discharge Summary Admission Date: 10/31/18 Discharge Date: 11/12/18 - History Present History: Alcohol dependence - Discharge Physical Exam Vital Signs: Vital Signs Temperature 98.4 F 11/12/18 07:35 Pulse Rate 80 11/12/18 07:35 Respiratory Rate 18 11/12/18 07:35 Blood Pressure 104/66 11/12/18 07:35 O2 Sat by Pulse Oximetry (%) Pertinent Admission Physical Exam Findings: ROS: denies ETOH cravings, chest pain, sob and dizziness. PE alert and oriented x 3 skin warm and dry +perrla, eoms intact bl car s1s2 resp cta bl ext full rom, amb ad maria de jesus neg tremors - Treatment Discharge Condition: Discharge condition good Hospital Course: patient states she wants to leave from rehab today and requested early discharge. Patient states she accomplished all rehab goal and is motivated to maintain sobriety. Patient is medically stable and denies SI/HI. Patient to make her own follow up appointment with aftercare site: [facility] and given all contact information given to patient by counselor. Patient medically advised to attend AA to prevent relapse and follow up with PCP within one week of discharge to continue medical management. - Medication Discharge Medications: Ambulatory Orders Albuterol Sulfate Inhaler - [Ventolin HFA Inhaler -] 2 inh PO Q4H PRN #1 inhaler 11/12/18 - Medication-Assisted Treatment (MAT) Medication-Assisted Treatment (MAT): No - Discharge Instructions Diet, activity, other medical instructions: Diet: reg as luther Activity: as tolerated Other medical instructions: to follow up with pcp within one week of discharge - Follow-up Referral Minutes to complete discharge: 30 - AMA Did Patient Leave Against Medical Advice: No
== END 2018-11-12 10:00 | disposition home or self-care (01) | DRG 772 ==
LOC: YASAS 12:12 → Y3E 12:13
PROVIDERS: ADMIT Neuromusculoskeletal Medicine & OMM; ATTEND Neuromusculoskeletal Medicine & OMM
PROC: HZ42ZZZ Group Counseling for Substance Abuse Treatment, Cognitive-Behavioral (ICD-10-PCS; principal; 2018-10-31)
DX: F10.20 Alcohol dependence, uncomplicated (principal); J45.909 Unspecified asthma, uncomplicated